=== PATIENT | female | born 1990 | race African-American/Black ===

== ENCOUNTER 2021-05-26 09:47 | Emergency (ER) | payer OTHER ==
[~2021-05-26] VITALS: Ht 162.6 cm; Wt 103.4 kg
[2021-05-26 09:54] VITALS: BP 138/90
--- NOTE | 2021-05-26 09:55 | NUR ---
PATIENT RECEVED WITH C/O LOWER EXTREMITY NUMBNESS,PATIENT AXOX4.WITH H/O DM.NO SOB NO DISTRSS NOTED .VITAL SIGNS STABLE.
[2021-05-26] MEDS ORDERED: GLYB5TAB7 PO (10:12)
== END 2021-05-26 10:27 | disposition home or self-care (01) ==
LOC: ER 09:52
DX: E11.9 Type 2 diabetes mellitus without complications (principal); Z60.2 Problems related to living alone; Z79.84 Long term (current) use of oral hypoglycemic drugs
CPT/HCPCS: 82962-TC

== ENCOUNTER 2022-06-19 02:30 | Emergency (ER) | payer OTHER ==
[~2022-06-19] VITALS: Ht 162.6 cm; Wt 106.6 kg
[~2022-06-19 02:30] MED LIST: GLYB5TAB7 PO
--- NOTE | 2022-06-19 02:40 | NUR ---
[id number] FROM HOME C/O N/V. PATIENT IS AAOX4. VOMITED SEVERAL TIMES AT ER. SEEN BY DR DOLAN. PATIENT IS PLACED IN BED. VITALS CHECKED.
[2022-06-19] MEDS ORDERED: MORPHINE SULFATE INJ 2 MG/ML DISP.SYRIN IV ONE (03:00)
[2022-06-19] MEDS ORDERED: ONDANSETRON HCL/PF 4 MG/2 ML VIAL ONE ×2 (03:00→04:12)
[2022-06-19] MEDS ORDERED: ONDANSETRON HCL/PF 4 MG/2 ML VIAL IVP ONE (03:00)
[2022-06-19] MEDS ORDERED: IV NS 0.9% 1,000 ML BAG IV ONE ×2 (03:00→06:00)
[2022-06-19] MEDS ORDERED: MORPHINE SULFATE INJ 4 MG/ML DISP.SYRIN ONE (03:01)
--- NOTE | 2022-06-19 03:06 | NUR ---
IV CANNULA G18 INSERTED ON LEFT FA. BLOOD DRAWN AND SENT TO LAB
--- NOTE | 2022-06-19 03:08 | NUR ---
PATIENT CANNOT GIVE URINE SAMPLES AT THE MOMENT. SHE IS IN TOO MUCH PAIN
[2022-06-19 03:48] LABS: CALCIUM, SERUM 9.8 mg/dL (8.5-10.1); CREATININE 1.2 mg/dL (0.6-1.3); POTASSIUM 3.7 mmol/L (3.5-5.1)
[2022-06-19 03:54] LABS: ALBUMIN 4.1 g/dL (3.4-5.0); BILIRUBIN,DIRECT 0.1 mg/dL (0.0-0.2); BILIRUBIN,TOTAL 0.4 mg/dL (0.2-1.0); TOTAL PROTEIN, SERUM 8.8 g/dL (6.4-8.2)
[2022-06-19 03:57] LABS: BASOPHILS # (AUTO) 0.1 K/uL (0.0-0.2); BASOPHILS % (AUTO) 0.9 % (0.0-2.0); EOSINOPHILS % (AUTO) 1.1 % (0.0-6.0); HEMATOCRIT 41 % (33-45); HEMOGLOBIN 13.1 g/dL (11.5-14.8); LYMPHOCYTES # (AUTO) 2.7 K/uL (0.8-4.8); LYMPHOCYTES % (AUTO) 31.6 % (20.0-44.0); MEAN CORPUSCULAR HGB CONC 32 g/dl (31.0-36.0); MEAN CORPUSCULAR VOLUME 91 fL (82-100); MONOCYTES # (AUTO) 0.5 K/uL (0.1-1.30); MONOCYTES % (AUTO) 6.3 % (2.0-12.0); NEUTROPHILS # (AUTO) 5.2 K/uL (1.8-8.9); NEUTROPHILS % (AUTO) 60.1 % (43.0-81.0); PLATELET COUNT (AUTO) 368 K/uL (150-450); WHITE BLOOD COUNT (AUTO) 8.6 K/uL (4.3-11.0)
[2022-06-19] MEDS ORDERED: ONDANSETRON HCL/PF - ER 4 MG/2 ML VIAL IV ONE (04:00)
[2022-06-19] MEDS ORDERED: HYDROMORPHONE 1 MG/1 ML DISP.SYRIN IV ONE (04:00)
[2022-06-19] MEDS ORDERED: HYDROMORPHONE 1 MG/1 ML DISP.SYRIN ONE (04:12)
[2022-06-19] MEDS ORDERED: DIATR MEGLU/DIATRIZOATE SODIUM 30 ML BOTTLE (GASTROGRAPHIN) ONE (04:38)
--- NOTE | 2022-06-19 05:16 | NUR ---
PT RETURNED TO ER BED [address] VIA W/C
[2022-06-19] MEDS ORDERED: PROCHLORPERAZINE EDISYLATE 10 MG/2 ML VIAL ONE (05:53)
[2022-06-19] MEDS ORDERED: diphenhydrAMINE HCL 50 MG/ML VIAL ONE ×2 (05:53→08:13)
[2022-06-19] MEDS ORDERED: PROCHLORPERAZINE EDISYLATE 10 MG/2 ML VIAL IVP ONE (06:00)
[2022-06-19] MEDS ORDERED: diphenhydrAMINE HCL 50 MG/ML VIAL IV ONE ×2 (06:00→08:30)
[2022-06-19 07:02] LABS: BILIRUBIN,URINE NEGATIVE (NEGATIVE); COLOR,URINE YELLOW (YELLOW); LEUKOCYTE ESTERASE ,URINE NEGATIVE (NEGATIVE); NITRITE, URINE NEGATIVE (NEGATIVE); PROTEIN,URINE TRACE mg/dl (NEGATIVE); UGLUCOSE 100 MG/DL mg/dL (NEGATIVE); UROBILINOGEN,URINE 0.2 EU/dL (0.2)
--- NOTE | 2022-06-19 07:15 | NUR ---
RECEIVED PT FROM ASHOK VERA
--- NOTE | 2022-06-19 07:15 | NUR ---
PT ASLEEPY NO ANY DISTRESS
[2022-06-19 07:34] LABS: RBC,URINE 0-2 /HPF (0-2)
[2022-06-19 07:35] LABS: BACTERIA,URINE Few /HPF (None Seen)
--- NOTE | 2022-06-19 07:38 | NUR ---
COVID AND MRSA SWABS COLLECTED AND SENT TO LAB
[2022-06-19] MEDS ORDERED: METOCLOPRAMIDE HCL 10 MG/2 ML VIAL ONE (08:14)
[2022-06-19] MEDS ORDERED: METOCLOPRAMIDE HCL 10 MG/2 ML VIAL IV ONE (08:30)
--- NOTE | 2022-06-19 09:39 | NUR ---
PT STATED THAT SHE WANTS TO LEAVE AMA AND WANTS TO SPEAK W/ MD. DR REED MADE AWARE.
--- NOTE | 2022-06-19 09:54 | NUR ---
IV removed. Catheter intact and site benign. Pressure and 4x4 applied to site. No bleeding noted.
--- NOTE | 2022-06-19 09:54 | NUR ---
Patient does not wish to proceed with medical care recommended by Dr. Ortiz. Patient given information related to possible complications, up to and including , which could occur as a result of leaving the hospital at this time. Patient verbalizes understanding of risks involved due to leaving against medical advice. Patient has signed AMA form.
[2022-06-19 09:55] VITALS: BP 130/76
[2022-06-24] MEDS ORDERED: HYDR-3972 PO (09:17)
== END 2022-06-19 09:56 | disposition left against medical advice (07) ==
LOC: ER 03:11
DX: R10.9 Unspecified abdominal pain (principal); K31.1 Adult hypertrophic pyloric stenosis; R11.2 Nausea with vomiting, unspecified; Z53.29 Procedure and treatment not carried out because of patient's decision for other reasons; Z98.84 Bariatric surgery status; E11.9 Type 2 diabetes mellitus without complications
CPT/HCPCS: 99285; 74176; 96374; 96375; 96361; 87426; 96376; 85025; 80048; 83690; 80076; 84703; 81001; 36415; 87081; J0780; J1200 ×2; J2270; J2765; J2405 ×3; J7030 ×2; J1170; Q9963; C9803

== ENCOUNTER 2022-06-21 06:04 | Inpatient (IN) | payer OTHER ==
[~2022-06-21] VITALS: Ht 162.6 cm; Wt 91.6 kg
--- NOTE | 2022-06-21 06:10 | NUR ---
BIBRA78. FROM HOME C/O DIFFUSED ABD PAIN X 7 DAYS WORSENING. +N/+V/+D . S/P GASTRIC BYPASS SURGERY 2 MONTHS AGO. PT A/OX4. TOLERATING R/A RESP EVEN AND LABORED D/T PAIN. CONNECTED PT TO POX AND MONITOR. SAFETY MEASURES IN PLACE.
--- NOTE | 2022-06-21 06:16 | NUR ---
URINE COLLECTED AND SENT TO LAB
[2022-06-21] MEDS ORDERED: HYDROMORPHONE 1 MG/1 ML DISP.SYRIN ONE (06:22)
[2022-06-21] MEDS ORDERED: ONDANSETRON HCL/PF 4 MG/2 ML VIAL ONE (06:22)
--- NOTE | 2022-06-21 06:23 | NUR ---
COVID SWAB COLLECTED AND SENT TO LAB
[2022-06-21] MEDS ORDERED: ONDANSETRON HCL/PF 4 MG/2 ML VIAL IVP ONE (06:30)
[2022-06-21] MEDS ORDERED: IV NS 0.9% 1,000 ML BAG IV ONE (06:30)
[2022-06-21] MEDS ORDERED: HYDROMORPHONE INJ 2 MG/ML DISP.SYRIN IV ONE (06:30)
--- NOTE | 2022-06-21 06:40 | NUR ---
IV ESTABLISHED R WRIST #18G S/L; PATENT AND INTACT
--- NOTE | 2022-06-21 06:44 | NUR ---
SHADOWGRAPH OPERATOR AT PT'S BEDSIDE
[2022-06-21 07:33] LABS: BASOPHILS # (AUTO) 0.1 K/uL (0.0-0.2); BASOPHILS % (AUTO) 0.7 % (0.0-2.0); EOSINOPHILS % (AUTO) 0.2 % (0.0-6.0); HEMATOCRIT 37 % (33-45); HEMOGLOBIN 12.1 g/dL (11.5-14.8); LYMPHOCYTES # (AUTO) 2.7 K/uL (0.8-4.8); LYMPHOCYTES % (AUTO) 25.3 % (20.0-44.0); MEAN CORPUSCULAR HGB CONC 33 g/dl (31.0-36.0); MEAN CORPUSCULAR VOLUME 90 fL (82-100); MONOCYTES # (AUTO) 0.9 K/uL (0.1-1.30); MONOCYTES % (AUTO) 8.1 % (2.0-12.0); NEUTROPHILS # (AUTO) 6.9 K/uL (1.8-8.9); NEUTROPHILS % (AUTO) 65.7 % (43.0-81.0); PLATELET COUNT (AUTO) 354 K/uL (150-450); RED BLOOD CELL COUNT(AUTO) 4.08 MIL/uL (4.0-5.2); WHITE BLOOD COUNT (AUTO) 10.5 K/uL (4.3-11.0)
[2022-06-21 07:45] LABS: BILIRUBIN,URINE SMALL (NEGATIVE); COLOR,URINE YELLOW (YELLOW); LEUKOCYTE ESTERASE ,URINE NEGATIVE (NEGATIVE); NITRITE, URINE NEGATIVE (NEGATIVE); PH,URINE 5.5 (5.0-8.0); PROTEIN,URINE 100 mg/dl (NEGATIVE); UGLUCOSE 500 MG/DL mg/dL (NEGATIVE); UROBILINOGEN,URINE 0.2 EU/dL (0.2)
[2022-06-21 07:56] LABS: CALCIUM, SERUM 9.2 mg/dL (8.5-10.1)
[2022-06-21 08:02] LABS: BILIRUBIN,DIRECT 0.2 mg/dL (0.0-0.2); BILIRUBIN,TOTAL 0.8 mg/dL (0.2-1.0); TOTAL PROTEIN, SERUM 8.3 g/dL (6.4-8.2)
[2022-06-21 08:03] LABS: BACTERIA,URINE Rare /HPF (None Seen); RBC,URINE 81-100 /HPF (0-2); SQUAMOUS EPITHELIAL CELL,UR Few /HPF (None Seen); WBC,URINE 0-2 /HPF (0-3)
[2022-06-21 08:05] LABS: MUCUS,URINE Few /LPF (None Seen)
--- NOTE | 2022-06-21 08:07 | NUR ---
[facility] CALLED COMPUTER TECHNOLOGY TRAINER PAGED.
--- NOTE | 2022-06-21 09:10 | NUR ---
REPORT GIVEN TO LYNN FOR JAKE
--- NOTE | 2022-06-21 09:24 | NUR ---
PT TRANSPORTED TO MED SURG IN STABLE CONDITION
--- NOTE | 2022-06-21 10:00 | NUR ---
FISH HATCHERY MAN NOTE ADMITTED THIS 32 Y/O PATIENT FROM [facility]. TRANSPORTED VIA [facility], CAME TO THE UNIT @0930. PATIENT ABLE TO WALK FROM GURNEY TO BED, WITH STEADY GAIT. PATIENT IS ALERT AND ORIENTED X4, VERBALLY RESPONSIVE AND ABLE TO MAKE NEEDS KNOWN. STILL WITH C/O ABDOMINAL PAIN. WAS GIVEN DILAUDID IN THE ER. STABLE ON ROOM AIR, NO SOB, BREATHING EVEN AND UNLABORED. NOTED WITH PERIPHERAL ACCESS ON RIGHT WRIST #18G, INTACT AND PATENT, SALINE LOCKED. PATIENT SKIN GENERALLY INTACT. VITAL SIGNS TAKEN AND RECORDED. ROUTINE ADMISSION CARE RENDERED. SAFETY MEASURE IN PLACE.ED IN LOWEST AND LOCKED POSITION, SIDE RAILS UP X2, CALL LIGHT PLACED WITHIN EASY REACH. WILL CONTINUE TO MONITOR PATIENT.
[2022-06-21] MEDS ORDERED: Z GUARD REMEDY 4 OZ OINT TP PRN (11:00)
[2022-06-21] MEDS ORDERED: DEXTROSE 50%-WATER 50 ML DISP.SYRIN IV PRN (11:00)
[2022-06-21] MEDS ORDERED: MAG HYDROX/AL HYDROX/SIMETH 30 ML UDC PO PRN (11:00)
[2022-06-21] MEDS ORDERED: ACETAMINOPHEN 325 MG TABLET PO PRN (11:00)
[2022-06-21] MEDS ORDERED: MAGNESIUM HYDROXIDE 30 ML UDC PO PRN (11:00)
[2022-06-21] MEDS: IV NS 0.9% 1,000 ML IV SCH (11:17)
[2022-06-21] MEDS: HYDROMORPHONE INJ 2 MG/ML DISP.SYRIN IV PRN ×3 (11:26→20:19)
[2022-06-21] MEDS: BLOOD SUGAR DIAGNOSTIC 1 EACH STRIP VI SCH ×3 (11:47→22:16)
[2022-06-21] MEDS: INSULIN REGULAR, HUMAN 100 UNIT/ML 3 ML VIAL SQ PRN ×2 (12:30→16:43)
[2022-06-21] MEDS: POTASSIUM CHLORIDE 10 MEQ/50 ML PREMIXED IVPB FOR PERIPHERAL LINE IV SCH ×4 (13:41→17:02)
[2022-06-21 16:00] VITALS: BP 119/77
--- NOTE | 2022-06-21 18:47 | NUR ---
RN CLOSING NOTES PATIENT IN BED, ASLEEP, EASILY AROUSED. A/O X4, NO SIGNS OF ACUTE DISTRESS NOTED. STABLE ON ROOM AIR, NO SOB NOTED, BREATHING EVEN AND UNLABORED. MEDICATED FOR C/O ABDOMINAL PAIN. NO EPISODES OF NAUSEA OR VOMITING. IV ACCESS ON RIGHT WRIST #18G, INTACT AND PATENT WITH NS @125ML/HR INFUSING WELL. SAFETY MEASURE MAINTAINED. WILL ENDORSE TO NEXT SHIFT FOR CONTINUITY OF CARE.
--- NOTE | 2022-06-21 19:45 | NUR ---
MS RN CLOSING NOTE RECEIVED PATIENT IN BED, AWAKE. A/O X4, NO SIGNS OF ACUTE DISTRESS, NO SOB NOTED. STABLE ON ROOM AIR. BREATHING EVEN AND UNLABORED. PT C/O PAIN TO ABDOMEN. IV ACCESS TO RIGHT WRIST #18G, INTACT AND PATENT WITH NS RUNNING AT 125ML/HR. SAFETY MEASURE MAINTAINED: BED LOCKED IN LOW POSITION, SIDE RAILS UP X2, CALL LIGHT WITHIN REACH. WILL CONTINUE TO MONITOR PT.
[2022-06-21 20:00] VITALS: BP 123/77
[2022-06-21] MEDS: *INSULIN REGULAR(HUMULIN R)HUM 100 UNIT/ML VIAL SQ PRN (22:15)
[2022-06-22] MEDS: HYDROMORPHONE INJ 2 MG/ML DISP.SYRIN IV PRN ×4 (05:26→18:31)
[2022-06-22] MEDS: ONDANSETRON HCL/PF 4 MG/2 ML VIAL IVP PRN ×2 (05:27→12:57)
[2022-06-22 06:13] LABS: BASOPHILS # (AUTO) 0.1 K/uL (0.0-0.2); BASOPHILS % (AUTO) 0.7 % (0.0-2.0); EOSINOPHILS % (AUTO) 1.9 % (0.0-6.0); HEMATOCRIT 35 % (33-45); HEMOGLOBIN 11.6 g/dL (11.5-14.8); LYMPHOCYTES % (AUTO) 47.6 % (20.0-44.0); MEAN CORPUSCULAR HGB CONC 33 g/dl (31.0-36.0); MEAN CORPUSCULAR VOLUME 90 fL (82-100); MONOCYTES # (AUTO) 0.7 K/uL (0.1-1.30); MONOCYTES % (AUTO) 8.3 % (2.0-12.0); NEUTROPHILS # (AUTO) 3.5 K/uL (1.8-8.9); NEUTROPHILS % (AUTO) 41.5 % (43.0-81.0); PLATELET COUNT (AUTO) 318 K/uL (150-450); RED BLOOD CELL COUNT(AUTO) 3.92 MIL/uL (4.0-5.2); WHITE BLOOD COUNT (AUTO) 8.4 K/uL (4.3-11.0)
[2022-06-22] MEDS: BLOOD SUGAR DIAGNOSTIC 1 EACH STRIP VI SCH ×4 (06:56→21:51)
[2022-06-22 07:00] LABS: CALCIUM, SERUM 8.8 mg/dL (8.5-10.1); CREATININE 0.7 mg/dL (0.6-1.3); MAGNESIUM 2.1 mg/dL (1.8-2.4); POTASSIUM 3.3 mmol/L (3.5-5.1)
--- NOTE | 2022-06-22 07:20 | NUR ---
ORTHOPEDIC DESIGNER CLOSING NOTE LEFT PATIENT SLEEPING IN BED. A/O X4, NO SIGNS OF ACUTE DISTRESS NOTED. STABLE ON ROOM AIR, NO SOB NOTED, BREATHING EVEN AND UNLABORED. PAIN MED ADMINISTERED D/T C/O ABDOMINAL PAIN. HAD 1 EPISODE OF NAUSEA, AND VOMITING DURING SOFT BOARDER. ZOFRAN WAS GIVEN. IV ACCESS TO RIGHT WRIST #18G, INTACT AND PATENT WITH NS RUNNING AT 125ML/HR. SAFETY MEASURES OBSERVED. WILL ENDORSE PT'S CARE TO AM SHIFT NURSE.
--- NOTE | 2022-06-22 07:30 | NUR ---
RN Receiving Report Patient AOx 4, able to confirm name and date of . Patient shows no signs of distress or discomfort, states she is in no pain. Patient aware of current health situation and plan of care. Patient converses about how she lost control of her diabetes and knows what to do to "get back on track". Educated patient on importance of daily healthy habits. All safety precautions taken, call light and table within reach, bed at lowest position. Will continue to monitor throughout shift.
[2022-06-22 08:00] VITALS: BP 100/50
[2022-06-22 08:02] LABS: PHOSPHORUS 3.1 mg/dL (2.5-4.9)
[2022-06-22] MEDS ORDERED: POTASSIUM CHLORIDE 20 MEQ POWDER PACKET PO ONE (10:00)
[2022-06-22] MEDS: IV NS 0.9% 1,000 ML IV SCH ×2 (11:51→18:13)
[2022-06-22 15:39] VITALS: BP 137/94
--- NOTE | 2022-06-22 18:08 | NUR ---
RN Closing Note Patient AOx4 able to address her own concerns. Patient remained safe and stable throughout shift. Provided medications as prescribed and care as needed. Patient educated on precaution needed when taking Dilaudid, verbalized understanding and engaged in the conversation. IV fluids running as ordered, no signs of infiltration or pain reported at site. All safety precautions taken, call light and table within reach, bed at lowest position. Will endorse to night nurse for continuity of care.
--- NOTE | 2022-06-22 19:48 | NUR ---
RN Opening Note Patient AOx4 able to address her own concerns. IV fluids running as ordered, no signs of infiltration or pain reported at site. All safety precautions taken, call light and table within reach, bed at lowest position. pt to upgrade diet as tolerated pt aware. no n/v reported at this time.
[2022-06-22 20:00] VITALS: BP 115/80
[2022-06-22] MEDS: INSULIN REGULAR, HUMAN 100 UNIT/ML 3 ML VIAL SQ PRN (21:51)
[2022-06-23] MEDS: HYDROMORPHONE INJ 2 MG/ML DISP.SYRIN IV PRN ×4 (00:40→22:23)
--- NOTE | 2022-06-23 00:44 | NUR ---
RN NOTE PRN DILAUDID GIVEN FOR PAIN 04/07 TOLERATED WELL.
[2022-06-23] MEDS: IV NS 0.9% 1,000 ML IV SCH ×3 (03:28→16:39)
[2022-06-23] MEDS: INSULIN REGULAR, HUMAN 100 UNIT/ML 3 ML VIAL SQ PRN (06:39)
[2022-06-23] MEDS: BLOOD SUGAR DIAGNOSTIC 1 EACH STRIP VI SCH ×4 (06:39→21:44)
--- NOTE | 2022-06-23 06:46 | NUR ---
RN Closing Note Patient AOx4 able to address her own concerns. IV fluids running as ordered, no signs of infiltration or pain reported at site.prn pain management provided as needed tolerated well. pt tolerated clear liquid diet. All safety precautions taken, call light and table within reach, bed at lowest position. pt to upgrade diet as tolerated pt aware. no n/v reported at this time.will endorse care to day shift nurse.
[2022-06-23 07:21] LABS: BASOPHILS # (AUTO) 0.1 K/uL (0.0-0.2); BASOPHILS % (AUTO) 0.8 % (0.0-2.0); EOSINOPHILS % (AUTO) 2.8 % (0.0-6.0); HEMATOCRIT 37 % (33-45); HEMOGLOBIN 12.2 g/dL (11.5-14.8); LYMPHOCYTES # (AUTO) 3.6 K/uL (0.8-4.8); LYMPHOCYTES % (AUTO) 52.4 % (20.0-44.0); MEAN CORPUSCULAR HGB CONC 33 g/dl (31.0-36.0); MEAN CORPUSCULAR VOLUME 91 fL (82-100); MONOCYTES # (AUTO) 0.5 K/uL (0.1-1.30); MONOCYTES % (AUTO) 7.7 % (2.0-12.0); NEUTROPHILS # (AUTO) 2.5 K/uL (1.8-8.9); NEUTROPHILS % (AUTO) 36.3 % (43.0-81.0); PLATELET COUNT (AUTO) 289 K/uL (150-450); RED BLOOD CELL COUNT(AUTO) 4.05 MIL/uL (4.0-5.2); WHITE BLOOD COUNT (AUTO) 6.9 K/uL (4.3-11.0)
--- NOTE | 2022-06-23 07:30 | NUR ---
RN Receiving Report Patient AOx 4. Patient shows no signs of distress or discomfort, states she is in no pain. Patient aware of current health situation and plan of care. Patient states she has been experiencing abdominal discomfort since she on menstrual cycle. Patient educated on importance of following up with OBGYN to discuss her endometriosis once she is stable. All safety precautions taken, call light and table within reach, bed at lowest position. Will continue to monitor throughout shift.
[2022-06-23 08:00] VITALS: BP 128/81
[2022-06-23 08:07] LABS: CALCIUM, SERUM 8.3 mg/dL (8.5-10.1); CREATININE 0.8 mg/dL (0.6-1.3); POTASSIUM 3.4 mmol/L (3.5-5.1)
[2022-06-23] MEDS ORDERED: POTASSIUM CHLORIDE 20 MEQ POWDER PACKET PO ONE (10:00)
[2022-06-23 15:37] VITALS: BP 111/73
--- NOTE | 2022-06-23 18:10 | NUR ---
RN closing Report. Pt AOx4 able to express her own concerns. Patient remained safe throughout shift. Patient was not able to tolerate soft foods. Vomited after meals. Patient with abdominal discomfort throughout shift, administered pain medication as order. All safety precautions taken, care provided as needed. Call light and table within reach, bed at lowest position. Will endorse to night nurse for continuity of care.
[2022-06-23] MEDS: ONDANSETRON HCL/PF 4 MG/2 ML VIAL IVP PRN (18:14)
--- NOTE | 2022-06-23 19:12 | NUR ---
Transfer to [facility] Call from Sebas at [facility] ph. [phone] fx. [phone] Requesting Medical records for review: Face Sheet, H&P, Progress Note, Imaging, lab results. Faxed, Confirmation in pts chart. Endorsed information to Charge nurse and night nurse Transfer Order: Pending.... Pers [facility], it can wait for tomorrow since they are at full capacity now.
--- NOTE | 2022-06-23 19:43 | NUR ---
RN opening Report. Pt AOx4 able to express her own concerns. pt in shower at this time. will monitor for any more n/v. will provide pain management as needed. All safety precautions taken, care provided as needed. Call light and table within reach, bed at lowest position.
[2022-06-23 20:00] VITALS: BP 123/85
[2022-06-23] MEDS: *INSULIN REGULAR(HUMULIN R)HUM 100 UNIT/ML VIAL SQ PRN (21:45)
--- NOTE | 2022-06-23 22:26 | NUR ---
RN NOTE prn pain medication given tolerated well.
[2022-06-24] MEDS: IV NS 0.9% 1,000 ML IV SCH ×2 (03:36→11:00)
--- NOTE | 2022-06-24 06:12 | NUR ---
rn note received a call from [facility] they are awaiting insurance clearance once the insurance is cleared pt should be able to be transferred on Tuesday or Tuesday.
[2022-06-24] MEDS: BLOOD SUGAR DIAGNOSTIC 1 EACH STRIP VI SCH (06:35)
[2022-06-24] MEDS: INSULIN REGULAR, HUMAN 100 UNIT/ML 3 ML VIAL SQ PRN (06:36)
--- NOTE | 2022-06-24 06:47 | NUR ---
RN CLOSING NOTE Pt AOx4 able to express her own concerns. no reports of n/v during the shift. tp management provided as needed. All safety precautions taken, care provided as needed. Call light and table within reach, bed at lowest position. will endorse care to day shift nurse.
[2022-06-24 06:49] LABS: BASOPHILS % (AUTO) 0.8 % (0.0-2.0); EOSINOPHILS % (AUTO) 2.8 % (0.0-6.0); HEMATOCRIT 36 % (33-45); HEMOGLOBIN 11.7 g/dL (11.5-14.8); LYMPHOCYTES # (AUTO) 2.7 K/uL (0.8-4.8); LYMPHOCYTES % (AUTO) 44.3 % (20.0-44.0); MEAN CORPUSCULAR HGB CONC 33 g/dl (31.0-36.0); MEAN CORPUSCULAR VOLUME 91 fL (82-100); MONOCYTES # (AUTO) 0.4 K/uL (0.1-1.30); MONOCYTES % (AUTO) 6.9 % (2.0-12.0); NEUTROPHILS # (AUTO) 2.7 K/uL (1.8-8.9); NEUTROPHILS % (AUTO) 45.2 % (43.0-81.0); PLATELET COUNT (AUTO) 303 K/uL (150-450); RED BLOOD CELL COUNT(AUTO) 3.95 MIL/uL (4.0-5.2)
[2022-06-24 08:00] VITALS: BP 121/92
[2022-06-24] MEDS: HYDROMORPHONE INJ 2 MG/ML DISP.SYRIN IV PRN (08:03)
--- NOTE | 2022-06-24 08:09 | NUR ---
RN OPENING NOTE RECEIVED PATIENT IN BED, AWAKE, ALERT AND ORIENTED X4. AFEBRILE AND NOT ON ANY FORM OF ACUTE DISTRESS. BREATHING EVEN AND NON LABORED. LUNG SOUNDS CLEAR ON AUSCULTATION. ABDOMINAL SOUNDS PRESENT ON ALL QUADRANT BUT MORE ACTIVE ON UPPER QUADRANT. SAFETY MEASURE IN PLACE. KEPT BED IN LOCKED AND IN LOW POSITION. ADVISED TO USE THE CALL LIGHT WHEN IN NEED OF ASSISTANCE.
[2022-06-24 08:12] LABS: PHOSPHORUS 3.6 mg/dL (2.5-4.9)
[2022-06-24] MEDS ORDERED: HYDR-3972 PO (09:17)
--- NOTE | 2022-06-24 11:48 | NUR ---
TAXATION AGENT NOTE PATIENT DISCHARGED AT THIS TIME. DENIES ABDOMINAL PAIN, NO N/V REPORTED. TOLERATED 100% BREAKFAST. INSTRUCTED TO RETURN TO PHYSICIAN IF SYMPTOMS RETURN (N/V AND ABDOMINAL PAIN). SKIN INTACT. V/S STABLE. ID AND WRIST BANK AND HEPLOCK REMOVED, TOLERATED WELL. THIS PUBLIC HEALTH REGISTRAR ESCORTED PATIENT OUT OF THE HOSPITAL.
== END 2022-06-24 15:56 | disposition home or self-care (01) | DRG 637 ==
LOC: ER 06:05 → MED 09:10
PROVIDERS: ADMIT Internal Medicine; ATTEND Internal Medicine
DX: E11.10 Type 2 diabetes mellitus with ketoacidosis without coma (principal); N17.0 Acute kidney failure with tubular necrosis; E87.1 Hypo-osmolality and hyponatremia; Z79.84 Long term (current) use of oral hypoglycemic drugs; E87.6 Hypokalemia; N80.9 Endometriosis, unspecified; E11.65 Type 2 diabetes mellitus with hyperglycemia; Z98.84 Bariatric surgery status
CPT/HCPCS: 36415; 74018; 80048-TC; 80076-TC; 81001; 82962-TC; 83690-TC; 83735-TC; 84100-TC; 84703-TC; 85025-TC; 87081-TC; C9803; G0378; J1170; J1815; J2405; J3480; J7030

== ENCOUNTER 2025-06-21 18:19 | Emergency (ER) | payer OTHER ==
[~2025-06-21] VITALS: Ht 162.6 cm; Wt 78.0 kg
[~2025-06-21 18:19] MED LIST changes: -GLYB5TAB7 PO; +HYDR-3972 PO
[2025-06-21 18:35] VITALS: BP 106/71; TEMP 97.9; O2SAT 99
== END 2025-06-21 22:04 | disposition left against medical advice (07) ==
LOC: ER 18:40
DX: R07.89 Other chest pain (principal); R20.0 Anesthesia of skin; Z53.21 Procedure and treatment not carried out due to patient leaving prior to being seen by health care provider